=== PATIENT | male | born 1960 | race Caucasian/White ===

== ENCOUNTER 2016-10-05 10:28 | Emergency (ER) | payer BC, OTHER ==
[~2016-10-05] VITALS: Ht 182.9 cm; Wt 96.0 kg
[~2016-10-05 10:28] MED LIST: CIPR-9 PO; LOVA40TA PO; METR-1 PO; NEXI20CA PO; ULTR50TA5 PO
[2016-10-05 10:29] VITALS: BP 184/89; PULSE 81; RESP 18; TEMP 97.6; O2SAT 97
[2016-10-05] MEDS ORDERED: DOXYCYCLINE HYCLATE 100 MG CAP PO ONE (10:45)
--- NOTE | 2016-10-05 10:50 | PD ---
HPI Chief Complaint: ENT Complaint Time Seen by Provider: 10:36 Travel History International Travel<30 days: No Contact w/Intl Traveler<30days: No Traveled to known affect area: No History of Present Illness HPI Patient is a 56 year old male who was sent to the ER [facility] for evaluation of nasal fracture and possible posterior nose bleed. As per patient, he was playing softball this morning, and was hit in the face by a softball. Reports that he is not on any anticoagulants. Denies syncope, denies denies loss of consciousness, denies fall. Patient reports that he went to the urgent care center today, he had an x-ray of his facial bones which showed concerning fracture. The ER doctor there place Afrin to both nares and a Rhino Rocket was placed in each nostril at 9:45 AM. Patient was sent to the emergency room as there were concerns for epistasis with uncontrolled bleeding. Patient at this time reports that his epistaxis has resolved at this time. He is here as it was recommended that he get ct's of his facial bones [facility] Past Medical History High Cholesterol: Yes GERD: Yes Past Surgical History Surgical History: No Previous Surgery Social History Alcohol Use: Yes Tobacco Use: No Substance Use: No Allergies-Medications (Allergen,Severity, Reaction): Coded Allergies: Penicillin (Verified Allergy, Unknown, 01/30/16) Reported Meds & Prescriptions Reported Meds & Active Scripts Active Ultram (Tramadol HCl) 50 Mg Tab 50 Mg PO Q4H PRN Flagyl (Metronidazole) 500 Mg Tab 500 Mg PO BID 10 Days Cipro (Ciprofloxacin HCl) 500 Mg Tab 500 Mg PO BID 10 Days Reported Nexium (Esomeprazole DR) 20 Mg Capdr 20 Mg PO DAILY Lovastatin 40 Mg Tab 40 Mg PO DAILY Review of Systems General / Constitutional: No: Fever Eyes: No: Visual changes HENT: Positive: Nosebleed, No: Headaches Cardiovascular: No: Chest Pain or Discomfort Respiratory: No: Shortness of Breath Gastrointestinal: No: Abdominal Pain Genitourinary: No: Dysuria Musculoskeletal: No: Pain Skin: No Rash Neurologic: No: Weakness Psychiatric: No: Depression Endocrine: No: Polydipsia Hematologic/Lymphatic: No: Easy Bruising Physical Exam Narrative GENERAL: NAD SKIN: Focused skin assessment warm/dry. HEAD: Atraumatic. Normocephalic. Patient with bruising to nares b/l EYES: Pupils equal and round. No scleral icterus. No injection or drainage. No signs of entrapment ENT: No nasal bleeding, both nares are packed with rhino rockets. NECK: Trachea midline. No JVD. CARDIOVASCULAR: Regular rate and rhythm. No murmur appreciated. RESPIRATORY: No accessory muscle use. Clear to auscultation. Breath sounds equal bilaterally. GASTROINTESTINAL: Abdomen soft, non-tender, nondistended. Hepatic and splenic margins not palpable. MUSCULOSKELETAL: No obvious deformities. No clubbing. No cyanosis. No edema. NEUROLOGICAL: Awake and alert. No obvious cranial nerve deficits. Motor grossly within normal limits. Normal speech. PSYCHIATRIC: Appropriate mood and affect; insight and judgment normal. Data Data Last Documented VS Vital Signs Date Time Temp Pulse Resp B/P Pulse Ox O2 Delivery O2 Flow Rate FiO2 10/05/16 11:58 76 16 168/89 96 Room Air 10/05/16 10:[address] Brain W/O Iv Contrast(Rout) (10/05/16 10:41) Ct Facial Bones W/O Iv Cont (10/05/16 10:41) Doxycycline (Vibramycin) (10/05/16 10:45) Basic Metabolic Panel (Bmp) (10/05/16 12:44) Complete Blood Count With Diff (10/05/16 12:44) Prothrombin Time / Inr (Pt) (10/05/16 12:44) Act Partial Throm Time (Ptt) (10/05/16 12:44) Hydralazine Inj (Apresoline Inj) (10/05/16 12:45) Oxycodone-Acetamin 5-325 Mg (Percocet (10/05/16 13:15) MDM Medical Decision Making Medical Screen Exam Complete: Yes Emergency Medical Condition: Yes Interpretation(s) Vital Signs Date Time Temp Pulse Resp B/P Pulse Ox O2 Delivery O2 Flow Rate FiO2 10/05/16 10:29 97.6 81 18 184/89 97 Room Air Differential Diagnosis Differential includes facial bone fracture, epistasis Narrative Course Patient is a 56-year-old male who presents to emergency room from [facility] for evaluation of epistasis. As per nursing care records, patient had bilateral nasal Rhino Rockets place, reports concerns for uncontrolled bleeding and possible posterior epistasis. Patient at this time has resolution of epistasis, he does have bilateral Rhino Rocket in place. There is no blood in his posterior pharynx. I do not believe that patient has a posterior epistasis bleed. Plan to obtain CT of his head as well as facial bones for further evaluation of nasal bone fractures. Vital signs are stable, he currently is not on any anticoagulants. Patient's tetanus is up-to-date. Will give a dose of doxycycline as he has bilateral Rhino Rocket in place. Last Impressions Maxillofacial CT 10/05/16 1041 Signed Impressions: Service Date/Time: September 10:56 - CONCLUSION: Mildly displaced fractures of the nasal bone and maxillary spine. Minimally displaced fracture of the anterolateral floor of the right maxillary sinus Brian Medel MD Head CT 10/05/16 1041 Signed Impressions: Service Date/Time: , October 05, 2016 10:55 - CONCLUSION: No acute intracranial injury Brian Medel MD call made to ENT to review case case reviewed with Dr. Godwin, patient safe to be discharged home if he does not require any oxygen requirements, vss. He can follow-up in the office in 3 days for nasal packing to be removed. Request that the patient be placed on antibiotics. Patient reevaluated, patient with no posterior bleeding, patient with resolution of nose bleed at this time. I offered patient admission to the hospital for observation overnight for bilateral epistasis with facial bone fracture. Patient requests to be discharged to home and will follow-up with in the office. He will return to ER as needed or if bleeding returns Plan to have patient follow up with [facility] for facial bone fractures Diagnosis Primary Impression: Nasal bone fractures Qualified Code: S02.2XXA - Closed fracture of nasal bone, initial encounter Additional Impressions: Maxillary sinus fracture Qualified Code: S02.401B - Open fracture of maxillary sinus, initial encounter Epistaxis Referrals: Case Sanchez DDS, Anthony T. MD Patient Instructions: General Instructions, Narcotic given in the ED Additional Instructions: Please follow up with Dr. Godwin (ENT) in office for packing removal Please take antibiotics as prescribed Please follow up with Dr. Sanchez for your facial bone fractures Return to ER if symptoms worsen or progress Return to ER as needed Med/Other Pt SpecificInfo: Prescription(s) given Scripts Ibuprofen 600 Mg [id number] Mg PO Q6H PRN (Pain/Inflammation) #40 TAB Ref 0 Prov:Constance Peralta DO 10/05/16 Oxycodone-Acetaminophen (Percocet)5-325 mg Tab1 Tab PO Q6H PRN (PAIN) #15 TAB Ref 0 Prov:Constance Peralta DO 10/05/16 Doxycycline Hyclate 100 Mg [id number] Mg PO BID 10 Days Ref 0 Prov:Constance Peralta DO 10/05/16 Disposition: 01 DISCHARGE HOME Condition: Stable Constance Peralta DO Oct 05, 2016 10:50
--- NOTE | 2016-10-05 11:26 | RADRPT ---
EXAM DATE/TIME: 10/05/2016 10:55 [facility] COMPARISON: No previous studies available for comparison. INDICATIONS : Trauma; struck in face with softball. RADIATION DOSE: 45.79 CTDIvol (mGy) MEDICAL HISTORY : None SURGICAL HISTORY : None. ENCOUNTER: Initial ACUITY: 1 day PAIN SCALE: 0/10 LOCATION: cranial TECHNIQUE: Multiple contiguous axial images were obtained of the head. Using automated exposure control and adj ustment of the mA and/or kV according to patient size, radiation dose was kept as low as reasonably a chievable to obtain optimal diagnostic quality images. DICOM format image data is available electro nically for review and comparison. FINDINGS: The brain is symmetric and normal. There is no evidence of hemorrhage or mass. Nothing to suggest acu te injury or acute infarction. Extracranially, than nasal bone is broken in several places with mild displacement. There is blood in the sinuses, mainly the maxillary antra. CONCLUSION: No acute intracranial injury Brian Medel MD on October 05, 2016 at 11:13 Board Certified Radiologist. This report was verified electronically.
--- NOTE | 2016-10-05 11:35 | RADRPT ---
EXAM DATE/TIME: 10/05/2016 10:56 [facility] COMPARISON: No previous studies available for comparison. INDICATIONS : Trauma; struck in face with softball. RADIATION DOSE: 36.44 CTDIvol (mGy) MEDICAL HISTORY : None SURGICAL HISTORY : None. ENCOUNTER: Initial ACUITY: 1 day PAIN SCORE: 6/10 LOCATION: facial TECHNIQUE: Volumetric scanning of the facial bones was performed. Using automated exposure control and adjustme nt of the mA and/or kV according to patient size, radiation dose was kept as low as reasonably achiev able to obtain optimal diagnostic quality images. DICOM format image data is available electronicall y for review and comparison. FINDINGS: There eyelid displaced fractures of the nasal bone and a mildly displaced fracture involving the base of the maxillary spine. A minimally displaced fracture of the inferolateral anterior wall of the rig ht maxillary sinus is present. There is moderate soft tissue swelling. There is blood in the maxillar y antra. The orbits and zygomatic arches are symmetric and intact. The mandible is intact. CONCLUSION: Mildly displaced fractures of the nasal bone and maxillary spine. Minimally displaced fracture of the anterolateral floor of the right maxillary sinus Brian Medel MD on October 05, 2016 at 11:25 Board Certified Radiologist. This report was verified electronically.
[2016-10-05 11:58] VITALS: BP 168/89; PULSE 76; RESP 16; O2SAT 96
[2016-10-05] MEDS ORDERED: hydrALAZINE HCL 20 MG/ML VIAL IV PUSH ONE (12:45)
[2016-10-05] MEDS ORDERED: DOXY100C PO (13:14)
[2016-10-05] MEDS ORDERED: IBUP-232 PO (13:14)
[2016-10-05] MEDS ORDERED: PERC5TAB12 PO (13:14)
[2016-10-05] MEDS ORDERED: oxyCODONE/ACETAMINOPHEN 5 MG/325 MG TAB PO ONE (13:15)
[2016-10-05 14:02] VITALS: BP 171/73
== END 2016-10-05 14:03 | disposition home or self-care (01) ==
LOC: NEPC 10:28
DX: S02.2XXA Fracture of nasal bones, initial encounter for closed fracture (principal); S02.40CB Maxillary fracture, right side, initial encounter for open fracture; W21.07XA Struck by softball, initial encounter; Y93.64 Activity, baseball
CPT/HCPCS: 70450; 70486